=== PATIENT | female | born 1970 | race Caucasian/White ===

== ENCOUNTER 2017-10-30 08:15 | Outpatient (RCR) | payer OTHER | END 2017-10-31 | disposition home or self-care (01) | LOC: PTY 08:15 | DX: S39.92XD Unspecified injury of lower back, subsequent encounter (principal); G89.4 Chronic pain syndrome ==

== ENCOUNTER 2017-11-27 08:15 | Outpatient (RCR) | payer OTHER | END 2017-12-01 | disposition home or self-care (01) | LOC: PTY 08:15 | DX: S39.92XD Unspecified injury of lower back, subsequent encounter (principal); G89.4 Chronic pain syndrome | CPT/HCPCS: 97110; 97140; G0283 ==

== ENCOUNTER 2017-12-18 08:05 | Outpatient (RCR) | payer OTHER | END 2018-01-01 | disposition home or self-care (01) | LOC: PTY 08:05 | DX: S39.92XD Unspecified injury of lower back, subsequent encounter (principal); G89.4 Chronic pain syndrome | CPT/HCPCS: 97110; 97140; G0283 ==